=== PATIENT | female | born 2000 | race Caucasian/White ===

== ENCOUNTER 2025-08-13 23:43 | Observation (INO) ==
--- NOTE | 2025-08-14 00:01 | Emergency Department Note ---
History of Present Illness General Chief complaint: Illness Stated complaint: gallbladder pain History of Present Illness Maximum Pain Intensity: 8 This 24-year-old with no prior abdominal surgeries presents ER complaining of epigastric pain since yesterday. Patient went to [place] ER as she was visiting family in that region and had a CAT scan and labs. They did not have ultrasound there. CT was negative per patient. She does not have the results with her. Pain persisted so the patient came here. Patient denies chest pain, dyspnea, fever, chills, flulike illness. She has felt nauseous. Home Medications Medication Instructions Recorded Confirmed Type ibuprofen 200 mg tablet 400 mg PO Q6H PRN Pain 06/22/23 06/12/25 History albuterol sulfate 90 mcg/actuation 2 puff inhalation Q4 PRN Shortness 11/08/23 06/12/25 Rx aerosol inhaler (Ventolin HFA) Of Breath Or Wheezing #6.7 grams cholecalciferol (vitamin D3) 50 50 mcg PO DAILY 12/23/23 06/12/25 History mcg (2,000 unit) capsule ferrous gluconate 225 mg (27 mg 225 mg PO DAILY 09/13/24 06/12/25 History iron) tablet levothyroxine 50 mcg tablet 50 mcg PO DAILY #90 tabs 09/13/24 06/12/25 Rx buspirone 7.5 mg tablet 7.5 mg PO TID #90 tabs 09/28/24 06/12/25 Rx spironolactone 50 mg tablet 100 mg (2 x 50 mg) PO DAILY #180 11/26/24 06/12/25 Rx tabs clindamycin phosphate 1 % topical 1 applic topical BID #60 mL 03/27/25 06/12/25 Rx solution propranolol 10 mg tablet 10 mg PO DIRECTED PRN Anxiety 06/12/25 06/12/25 Rx #90 tabs metformin 500 mg tablet,extended 1,500 mg (3 x 500 mg) PO DAILY 07/10/25 Rx release 24 hr #270 tabs Allergies Allergy/AdvReac Type Severity Reaction Status Date / Time nickel Allergy Rash Verified 06/12/25 16:09 Past Med/Surg History Problem List (Updated 08/14/25 @ 02:57 by Nova Stone PA-C) Nausea & vomiting (Acute) Abdominal pain, acute (Acute) Cholelithiasis (Acute) Subclinical hypothyroidism Impaired fasting glucose Iron deficiency Vitamin B12 deficiency Hirsutism Morbid obesity Vitamin D deficiency PCOS (polycystic ovarian syndrome) Anxiety Exercise-induced asthma Palpitations Heavy menstrual bleeding Surgical History H/O oral surgery History of tonsillectomy and adenoidectomy Family History Father Hypertension Mother H/O Sunitha thyroiditis Denies family history of Ovarian cancer Prostate cancer Myocardial infarction Breast cancer Colorectal cancer Social History Smoking Status: Never smoker Second Hand Exposure: No; Hx Alcohol Use: Yes Hx Substance Use: No Preferred Language: Vietnamese Visual Impairment: No Limitations Hearing Ability: Normal marital status: Single Current Living Situation: Alone current occupational status: employed Feels Safe at Home: Yes Childhood Exposure to Second-Hand Smoke: No Dental Care, Regularly: Yes Physical Activity Frequency: Daily Seatbelt Use: always Sunscreen Use: Yes Review of Systems A total of 10 systems reviewed and were otherwise negative Physical Exam Vital Signs Vital Signs - 24 hr 08/13/25 23:48 08/13/25 23:56 08/14/25 00:00 Temperature 36.5 C Temperature Source Temporal Artery Scan Pulse Rate 109 H 99 H 104 H Pulse Rate [Apical] Pulse Rate from SpO2 Sensor Pulse Rhythm Regular Regular Pulse Strength Normal Respiratory Rate 18 16 16 Respiratory Effort / Characteristics Non-Labored Spontaneous Respiratory Depth Normal Respiratory Pattern Regular Blood Pressure 146/79 H Blood Pressure [Right Arm] Blood Pressure Mean 101 Blood Pressure Mean [Right Arm] Blood Pressure Position Sitting Pulse Oximetry 99 100 100 Oxygen Delivery Method Room Air Room Air Room Air Sepsis Recent Fever Within 48 Hours No Sepsis New/Unexplained Change in Mental Status N/A Sepsis Action Taken by Nursing No Action Required 08/14/25 00:12 08/14/25 00:24 08/14/25 00:30 Temperature Temperature Source Pulse Rate 99 H 96 H Pulse Rate [Apical] 99 H Pulse Rate from SpO2 Sensor 98 H 97 H Pulse Rhythm Pulse Strength Respiratory Rate 14 16 17 Respiratory Effort / Characteristics Non-Labored Spontaneous Respiratory Depth Normal Respiratory Pattern Regular Blood Pressure 138/94 141/99 H Blood Pressure [Right Arm] 138/94 Blood Pressure Mean 108 113 Blood Pressure Mean [Right Arm] 108 Blood Pressure Position Pulse Oximetry 99 100 100 Oxygen Delivery Method Room Air Room Air Room Air Sepsis Recent Fever Within 48 Hours Sepsis New/Unexplained Change in Mental Status Sepsis Action Taken by Nursing 08/14/25 00:42 08/14/25 01:18 08/14/25 01:30 Temperature Temperature Source Pulse Rate 96 H 97 H 80 Pulse Rate [Apical] Pulse Rate from SpO2 Sensor 97 H 98 H 90 Pulse Rhythm Pulse Strength Respiratory Rate 20 20 20 Respiratory Effort / Characteristics Respiratory Depth Respiratory Pattern Blood Pressure 140/100 142/98 H 160/97 H Blood Pressure [Right Arm] Blood Pressure Mean 113 112 118 Blood Pressure Mean [Right Arm] Blood Pressure Position Pulse Oximetry 99 99 96 Oxygen Delivery Method Room Air Room Air Room Air Sepsis Recent Fever Within 48 Hours Sepsis New/Unexplained Change in Mental Status Sepsis Action Taken by Nursing 08/14/25 02:00 Temperature Temperature Source Pulse Rate Pulse Rate [Apical] Pulse Rate from SpO2 Sensor 88 Pulse Rhythm Pulse Strength Respiratory Rate Respiratory Effort / Characteristics Respiratory Depth Respiratory Pattern Blood Pressure 142/104 H Blood Pressure [Right Arm] Blood Pressure Mean 116 Blood Pressure Mean [Right Arm] Blood Pressure Position Pulse Oximetry 99 Oxygen Delivery Method Room Air Sepsis Recent Fever Within 48 Hours Sepsis New/Unexplained Change in Mental Status Sepsis Action Taken by Nursing VITALS: Vitals are noted on the nurse's note and reviewed by myself. Vital signs stable. GENERAL: Pleasant patient, in no acute distress, nondiaphoretic, well-developed well-nourished. SKIN: Capillary reflex less than 2 seconds. HEENT: Normocephalic. PERRLA. EOMI. Nares patent. Mucous membranes moist. Neck is supple without nuchal rigidity. HEART: Regular rate and rhythm LUNGS: Clear to auscultation bilaterally without wheezes, rales or rhonchi. No retractions or accessory muscle use. ABDOMEN: Positive bowel sounds x 4. Normal tympanic percussion. Soft, tender epigastric region, without masses or organomegaly No guarding or rebound tenderness. no CVA tenderness MUSCULOSKELETAL: No gross musculoskeletal defects. NEURO: Patient was alert and oriented to person place and time. No focal neurological deficits. Course Administered Medications Sodium Chloride (Nss) 1,000 mls @ 125 mls/hr IV .Q8H DEMETRI Stop: 08/17/25 02:29 Last Admin: 08/14/25 02:46 Dose: 125 mls/hr Documented By: SHEY Discontinued Medications Pantoprazole Sodium (Protonix) 40 mg in 10 mls @ 5 mls/min IV NOW ONE Stop: 08/13/25 23:57 Last Admin: 08/14/25 00:26 Dose: 5 mls/min Documented By: SHEY Sodium Chloride (Nss) 1,000 mls @ 999 mls/hr IV .Q1H1M ONE Stop: 08/14/25 00:56 Last Infusion: 08/14/25 01:30 Dose: Infused Documented By: Admin: 08/14/25 00:10 Dose: 999 mls/hr Documented By: SHEY Morphine Sulfate (Morphine Sulfate 4 Mg/Ml 1 Ml Carp\Vial) 4 mg IV NOW STA Stop: 08/14/25 00:34 Last Admin: 08/14/25 00:36 Dose: 4 mg Documented By: SHEY Morphine Sulfate (Morphine Sulfate 4 Mg/Ml 1 Ml Carp\Vial) 4 mg IV NOW STA Stop: 08/14/25 02:19 Last Admin: 08/14/25 02:41 Dose: 4 mg Documented By: SHEY Ondansetron HCl (Ondansetron Inj 2 Mg/Ml 2 Ml Vial) 4 mg IV NOW STA Stop: 08/13/25 23:57 Last Admin: 08/14/25 00:26 Dose: 4 mg Documented By: SHEY Medical Decision Making Medical Records Attestation: I reviewed the patient's medical records. Home Medications Current Medication List: was personally reviewed by me Laboratory Data Attestation: I reviewed the patient's lab results. 08/13/25 00:14 08/13/25 00:14 Lab Results 08/13/25 08/14/25 Range/Units 00:14 00:10 WBC 11.46 H (4.8-10.8) K/ul RBC 5.13 (4.20-5.40) M/uL Hgb 15.3 (12.0-16.0) g/dL Hct 43.4 (37.0-47.0) % MCV 84.6 (80.0-100.0) fL MCH 29.8 (25.0-34.0) pg MCHC 35.3 (32.0-36.0) g/dL RDW Std Deviation 35.8 L (36.4-46.3) fL RDW Coeff of [place] 11.7 (11.5-14.5) % Plt Count 236 (130-400) K/uL MPV 9.8 (9.4-12.4) fL Immature Gran % (Auto) 0.3 % Neut % (Auto) 75.1 % Lymph % (Auto) 17.9 % [place] % (Auto) 4.8 % Eos % (Auto) 1.7 % Baso % (Auto) 0.2 % Neut # (Auto) 8.62 H (1.40-6.50) K/uL Lymph # (Auto) 2.05 (1.20-3.40) K/uL [place] # (Auto) 0.55 (0.11-0.59) K/uL Eos # (Auto) 0.19 (0.00-0.50) K/uL Baso # (Auto) 0.02 (0.00-0.20) K/uL Immature Gran # (Auto) 0.03 (0.01-0.20) K/uL Sodium 141 (136-145) mmol/L Potassium 3.7 (3.5-5.1) mmol/L Chloride 103 (98-107) mmol/L Carbon Dioxide 26 (21-32) mmol/L Anion Gap 12 H (3-11) BUN 12 (6-23) mg/dl Creatinine 0.62 (0.6-1.2) mg/dl Est Cr Clr Drug Dosing 193.5 ml/min eGFR 127.45 BUN/Creatinine Ratio 19.4 (10-20) Glucose 114 H (70-99(Fasting)) mg/dl Calcium 9.7 (8.6-10.3) mg/dl Total Bilirubin 0.5 (0.2-1.0) mg/dl AST 21 (13-39) U/L ALT 30 (7-52) U/L Alkaline Phosphatase 62 (34-104) U/L Total Protein 7.5 (6.0-8.3) gm/dl Albumin 4.5 (3.4-5.0) gm/dl Globulin 3.0 (2.5-4.0) gm/dl Albumin/Globulin Ratio 1.5 (0.9-2) Lipase 44 (11-82) U/L HCG, Qual Negative (Negative) Urine Color Dark Yellow Urine Appearance Clear (Clear) Urine pH 7.0 (4.5-7.5) Ur Specific [place] 1.026 (1.000-1.030) Urine Protein Trace H (Negative) Urine Glucose (UA) Negative (Negative) Urine Ketones Trace H (Negative) Urine Blood Negative (Negative) Urine Nitrite Negative (Negative) Urine Bilirubin Negative (Negative) Urine Urobilinogen Negative (Negative) Ur Leukocyte Esterase Negative (Negative) Urine WBC (Auto) 0-5 (0-5) /hpf Urine RBC (Auto) 6-10 H (0-2) /hpf U Hyaline Cast (Auto) 0-2 (0-2) /lpf U Epithel Cells (Auto) 3-5 H (0-2) /hpf Urine Bacteria (Auto) 2+ H (None Seen) Urine Comment Imaging Data Attestation: I personally reviewed and interpreted this imaging study as follows: Radiologist's Impression: Gallbladder Ultrasound 08/13/25 23:56 EXAM: US gallbladder CLINICAL HISTORY: epigastric pain,RUQ pain, vomiting. TECHNIQUE: Ultrasound examination of the RUQ was performed using a high-frequency transducer. Scanning was performed with the patient in supine position. The following structures were specifically evaluated: COMPARISON: None available. FINDINGS: Liver: Liver size: Mild enlarged and echogenic fatty echogenicity, aroldo up to 18.5 cm. No evidence of focal lesions, cysts, or masses. Hepatic vasculature appears normal. mean portal vein patent. Gallbladder: The gallbladder is distended with bile. Multiple mobile gallstones seen at its neck, average wall thickness 2.5 mm noted. Unable to assess Peraza's sign due to medication. Biliary Tree: Common bile duct diameter: 4 mm. Common bile duct is prominent. No evidence of choledocholithiasis or biliary obstruction. Pancreas; obscured by overlying bowel Right Kidney: Right kidney size: 11.5 x 4.5 x 4.6 cm. The right kidney appears normal in size with preserved corticomedullary differentiation. No evidence of hydronephrosis, renal cysts, or masses. IMPRESSION: 1. Multiple Gallbladder stones at the neck; wall thickness measures approximately 2.5mm (within normal range). No definite sonographic evidence of acute cholecystitis. Recommend clinical correlation (Peraza's sign). 2. Mild hepatomegaly with fatty changes. 3. Common bile duct measures 4mm; no evidence of obstruction or choledocholithiasis. RECOMMENDATIONS: Clinical correlation with symptoms and further evaluation as indicated. Electronically signed by Dilip Knott 08-14-2025 02:10 AM [facility] Narrative Prior records/ancillary studies reviewed. Triage Nursing notes reviewed. Additional history obtained from nursing. The patient's history was concerning for abdominal pain. Differential diagnosis: Etiologies such as appendicitis, diverticulitis, PUD, biliary pathology, UTI, pancreatitis, obstruction, mesenteric ischemia, aortic pathology, infections, inflammatory bowel disease, renal colic, as well as others were entertained. Physical examination findings: As above. ER treatment provided: An order was placed for continuous cardiac monitoring. The monitor shows a rate of 60-100 with a sinus rhythm per my Independent interpretation. IV fluids, Zofran and Protonix were ordered I requested the records from [place] and they finally arrived and did review them. On reassessment the patient felt better. Diagnostics interpreted by me: The labs Independently Interpreted by myself revealed mild leukocytosis, negative hCG. Negative urine. Mild hyperglycemia that DKA. Normal LFTs Imaging studies: Imaging was reviewed and read by radiology Consultation: A consultation was placed with the surgical team. The case was discussed and diagnostics were reviewed. The patient was evaluated in the ER for further treatment. Exam and history seem consistent with cholelithiasis with concerns for developing acute cholecystitis. Patient did require a few rounds of pain meds. Surgery was consulted case discussed. Patient was admitted to the surgical service. Patient is agreeable. Patient was afebrile and nontoxic. Normal LFTs. I did review the records from [place]. Patient was admitted in stable condition. By the evaluation outlined above emergent etiologies such as appendicitis, diverticulitis, PUD, UTI, pancreatitis, obstruction, mesenteric ischemia, aortic pathology, inflammatory bowel disease, renal colic, as well as others were deemed relatively unlikely. The pt informed about the findings as listed above. All questions were answered and pleased with the treatment. The chart was completed utilizing [employer] voice recognition software. Grammatical errors, random word insertions, pronoun errors, and incomplete sentences are an occassional consequence of this system due to software limitations, ambient noise, and hardware issues. Any formal questions or concerns about the content, text, or information contained within the body of this dictation should be directly addressed to the physician events assistant for clarification. Impression & Plan Abdominal pain, acute, Cholelithiasis, Nausea & vomiting Discharge Plan Visit Data Chief Complaint: Illness Stated Complaint: gallbladder pain ED Provider: Юлия Cain ED Midlevel Provider: Nova Stone Discharge Problem: Abdominal pain, acute, Cholelithiasis, Nausea & vomiting Patient Disposition: Being Evaluated by Surgeon Condition: Good Forms Stand Alone Forms: My [facility] [employer] Prescriptions Prescriptions: No Action albuterol sulfate [Ventolin HFA] 90 mcg/actuation HFA aerosol inhaler 2 puff INHALATION Q4 PRN (Reason: Shortness Of Breath Or Wheezing) Qty: 6.7 1RF spironolactone 50 mg tablet 100 mg PO DAILY Qty: 180 2RF metformin 500 mg tablet extended release 24 hr 1,500 mg PO DAILY Qty: 270 2RF propranolol 10 mg tablet 10 mg PO DIRECTED PRN (Reason: Anxiety) Qty: 90 0RF cholecalciferol (vitamin D3) 50 mcg (2,000 unit) capsule 50 mcg PO DAILY Hold Instructions: high dose buspirone 7.5 mg tablet 7.5 mg PO TID Qty: 90 2RF clindamycin phosphate 1 % solution 1 applic topical BID Qty: 60 1RF ferrous gluconate 225 mg (27 mg iron) tablet 225 mg PO DAILY levothyroxine 50 mcg tablet 50 mcg PO DAILY Qty: 90 3RF ibuprofen 200 mg Tablet 400 mg PO Q6H PRN (Reason: Pain) Referrals Referrals: Ericka Busch CRNP [Primary Care Provider] - Discharge Problem: Cholelithiasis Qualifiers: Cholelithiasis location: gallbladder Cholecystitis acuity: unspecified acuity
[2025-08-14] MEDS: SODIUM CHLORIDE 0.9% 1,000 ML IV ONE (00:10)
[2025-08-14] MEDS: ONDANSETRON INJ 2 MG/ML 2 ML VIAL IV STA (00:26)
[2025-08-14] MEDS: PANTOprazole 40 MG/10 ML SYR IV ONE (00:26)
[2025-08-14 00:29] LABS: Hematocrit (blood only) 43.4 % (37.0-47.0); Hemoglobin 15.3 g/dL (12.0-16.0); Immature Granulocytes # (auto) 0.03 K/uL (0.01-0.20); Immature Granulocytes % (auto) 0.3 %; Mean Corpuscular Hemoglobin 29.8 pg (25.0-34.0); Mean Corpuscular Volume 84.6 fL (80.0-100.0); Platelet Count 236 K/uL (130-400); RDW Standard Deviation 35.8 fL (36.4-46.3); Red Blood Count 5.13 M/uL (4.20-5.40); White Blood Count 11.46 K/ul (4.8-10.8)
[2025-08-14] MEDS: MoRPHine SULFATE 4 MG/ML 1 ML CARP\\VIAL IV STA ×2 (00:36→02:41)
[2025-08-14 00:45] LABS: Pregnancy Test, Serum Negative (Negative)
[2025-08-14 00:46] LABS: Alanine Aminotransferase 30.0 U/L (7-52); Albumin Globulin Ratio 1.5 (0.9-2); Albumin Level 4.5 gm/dl (3.4-5.0); Alkaline Phosphatase 62.0 U/L (34-104); Anion Gap 12.0 (3-11); Bilirubin,Total 0.5 mg/dl (0.2-1.0); Blood Urea Nitrogen 12.0 mg/dl (6-23); Calcium 9.7 mg/dl (8.6-10.3); Carbon Dioxide 26.0 mmol/L (21-32); Chloride 103.0 mmol/L (98-107); Creatinine Clr Calc Pharmacy 193.5 ml/min; Globulin 3.0 gm/dl (2.5-4.0); Glucose 114.0 mg/dl (70-99(Fasting)); Lipase 44.0 U/L (11-82); Potassium 3.7 mmol/L (3.5-5.1); Sodium 141.0 mmol/L (136-145); Total Protein 7.5 gm/dl (6.0-8.3)
[2025-08-14 00:47] LABS: Appearance Urine Clear (Clear); Bacteria Urine Automated 2+ (None Seen); Cast Urine Automated 0-2 /lpf (0-2); Glucose Urine UA Negative (Negative); WBC Urine Automated 0-5 /hpf (0-5)
--- NOTE | 2025-08-14 02:11 | Ultrasound Report ---
EXAM: US gallbladder CLINICAL HISTORY: epigastric pain,RUQ pain, vomiting. TECHNIQUE: Ultrasound examination of the RUQ was performed using a high-frequency transducer. Scanning was performed with the patient in supine position. The following structures were specifically evaluated: COMPARISON: None available. FINDINGS: Liver: Liver size: Mild enlarged and echogenic fatty echogenicity, aroldo up to 18.5 cm. No evidence of focal lesions, cysts, or masses. Hepatic vasculature appears normal. mean portal vein patent. Gallbladder: The gallbladder is distended with bile. Multiple mobile gallstones seen at its neck, average wall thickness 2.5 mm noted. Unable to assess Peraza's sign due to medication. Biliary Tree: Common bile duct diameter: 4 mm. Common bile duct is prominent. No evidence of choledocholithiasis or biliary obstruction. Pancreas; obscured by overlying bowel Right Kidney: Right kidney size: 11.5 x 4.5 x 4.6 cm. The right kidney appears normal in size with preserved corticomedullary differentiation. No evidence of hydronephrosis, renal cysts, or masses. IMPRESSION: 1. Multiple Gallbladder stones at the neck; wall thickness measures approximately 2.5mm (within normal range). No definite sonographic evidence of acute cholecystitis. Recommend clinical correlation (Peraza's sign). 2. Mild hepatomegaly with fatty changes. 3. Common bile duct measures 4mm; no evidence of obstruction or choledocholithiasis. RECOMMENDATIONS: Clinical correlation with symptoms and further evaluation as indicated. Electronically signed by Dilip Knott 08-14-2025 02:10 AM
[2025-08-14] MEDS ORDERED: ONDANSETRON INJ 2 MG/ML 2 ML VIAL IV PRN ×2 (02:28→06:57)
--- NOTE | 2025-08-14 02:39 | History & Physical Report ---
Date of Service August 14, 2025 Assessment & Plan (1) Cholelithiasis: Plan: symptoms c/w cholelithiasis. discussed risks ( bleeding/infection/injury to a bile duct or other organ/dvt/pe/mi/cva etc...) questions answered. pt agreeable. will proceed today with lap martha (2) Nausea & vomiting: (3) Abdominal pain, acute: History of Present Illness Chief Complaint: Cholelithiasis Primary Care Provider: PEDRITO Douglass This is a 24-year-old female who presented to the emergency department secondary to abdominal pain. The patient says that the abdominal pain began yesterday and is located across her entire upper abdomen. She notes that the pain does not radiate and does not have any modifying factors. Patient says that over the past several weeks to months she has not noted any postprandial abdominal pain and has noted the pain began yesterday. She denies any fevers, shakes, or chills. She has had associated nausea and vomiting with her most recent episode of emesis only a few minutes ago. She has never had prior abdominal surgeries. Patient does note that she went to an emergency department in [place] yesterday and had a CT scan that she said did not reveal any cause to her abdominal pain so she presented to the emergency department at [facility]. Since arrival to the hospital today she has had additional imaging and labs which I independently reviewed. She did have a gallbladder ultrasound that showed there are multiple multiple gallstones seen in the gallbladder neck. There is no evidence of choledocholithiasis or biliary obstruction on this study. The gallbladder was noted to have normal range of thickness without definite evidence of cholecystitis. A CBC revealed white blood cell count was 11.4. Her hemoglobin and hematocrit as well as the platelet count were normal. Chemistry profile showed sodium and potassium as well as the BUN and creatinine were normal. The patient's total bilirubin, transaminases, alkaline phosphatase, and lipase were all normal. The patient did have a test that was negative. Urinalysis had 2+ bacteria but was otherwise not indicative of infection. At the time of my interview she was resting comfortably in bed and she was in no distress Allergies Allergy/AdvReac Type Severity Reaction Status Date / Time nickel Allergy Rash Verified 06/12/25 16:09 Home Medications Medication Instructions Recorded Confirmed Type ibuprofen 200 mg tablet 400 mg PO Q6H PRN Pain 06/22/23 06/12/25 History albuterol sulfate 90 mcg/actuation 2 puff inhalation Q4 PRN Shortness 11/08/23 06/12/25 Rx aerosol inhaler (Ventolin HFA) Of Breath Or Wheezing #6.7 grams cholecalciferol (vitamin D3) 50 50 mcg PO DAILY 12/23/23 06/12/25 History mcg (2,000 unit) capsule ferrous gluconate 225 mg (27 mg 225 mg PO DAILY 09/13/24 06/12/25 History iron) tablet levothyroxine 50 mcg tablet 50 mcg PO DAILY #90 tabs 09/13/24 06/12/25 Rx buspirone 7.5 mg tablet 7.5 mg PO TID #90 tabs 09/28/24 06/12/25 Rx spironolactone 50 mg tablet 100 mg (2 x 50 mg) PO DAILY #180 11/26/24 06/12/25 Rx tabs clindamycin phosphate 1 % topical 1 applic topical BID #60 mL 03/27/25 06/12/25 Rx solution propranolol 10 mg tablet 10 mg PO DIRECTED PRN Anxiety 06/12/25 06/12/25 Rx #90 tabs metformin 500 mg tablet,extended 1,500 mg (3 x 500 mg) PO DAILY 07/10/25 Rx release 24 hr #270 tabs Past Med/Surg History Problem List (Updated 08/14/25 @ 07:46 by Rip Oreilly DO) Cholelithiasis Nausea & vomiting (Acute) Abdominal pain, acute (Acute) Impaired fasting glucose Iron deficiency Vitamin B12 deficiency Hirsutism Vitamin D deficiency Exercise-induced asthma Heavy menstrual bleeding Medical History (Updated 08/14/25 @ 07:46 by Rip Oreilly DO) Encounter for pre-operative examination Anxiety Palpitations PCOS (polycystic ovarian syndrome) Morbid obesity Subclinical hypothyroidism Surgical History H/O oral surgery History of tonsillectomy and adenoidectomy Family History Father Hypertension Mother H/O Sunitha thyroiditis Denies family history of Ovarian cancer Prostate cancer Myocardial infarction Breast cancer Colorectal cancer Social History Smoking Status: Never smoker Second Hand Exposure: No; Hx Alcohol Use: No Hx Substance Use: No Preferred Language: Frisian Communication Ability: Effective Visual Impairment: No Limitations Hearing Ability: Normal Housing Project Manager Required: No Beliefs That Will Affect Care: None marital status: Single Current Living Situation: Alone current occupational status: employed Other Information That Helps Us Care for You: No Feels Safe at Home: Yes Safety Concerns: Feels Safe At This Time Childhood Exposure to Second-Hand Smoke: No Dental Care, Regularly: Yes Physical Activity Frequency: Daily Seatbelt Use: always Sunscreen Use: Yes Assistive Devices: Glasses Review of Systems Review of Systems: All systems reviewed & are unremarkable except as noted in HPI & below Physical Exam Constitutional: WD/WN, vitals as above Eyes: No scleral jaundice ENMT: Ears: no hearing impairment and no external ear abnormality Mouth: no oropharynx abnormality Neck: trachea midline Respiratory: normal respiratory effort; no respiratory distress and no labored breathing Cardiovascular: Rate/Rhythm: regular rate and regular rhythm Gastrointestinal (Abdomen): Abdomen is soft distention. There is no rebound tenderness, guarding, or signs of peritonitis. Patient did have pain with palpation in her upper abdomen but this appear to be greatest in the right upper quadrant Musculoskeletal: No calf tenderness Skin: no jaundice Neurologic: moves all extremities Psychiatric: A+Ox3, euthymic affect Results & Data Results & Data Vital Signs (Past 12 Hours) Vital Signs Temp Pulse Pulse Resp BP BP Pulse Ox 08/14/25 02:00 142/104 H 99 08/14/25 01:30 80 20 160/97 H 96 08/14/25 01:18 97 H 20 142/98 H 99 08/14/25 00:42 96 H 20 140/100 99 08/14/25 00:30 96 H 17 141/99 H 100 08/14/25 00:24 99 H 16 138/94 100 08/14/25 00:12 99 H 14 138/94 99 08/14/25 00:00 104 H 16 100 08/13/25 23:56 99 H 16 100 08/13/25 23:48 36.5 C 109 H 18 146/79 H 99 O2 Del Method 08/14/25 02:00 Room Air 08/14/25 01:30 Room Air 08/14/25 01:18 Room Air 08/14/25 00:42 Room Air 08/14/25 00:30 Room Air 08/14/25 00:24 Room Air 08/14/25 00:12 Room Air 08/14/25 00:00 Room Air 08/13/25 23:56 Room Air 08/13/25 23:48 Room Air PG Care Time/CCT Total # of Minutes Spent Total Time Spent with Patient: Total time spent is greater than 50% in coordination of care (as documented) at patient's floor/unit and/or counseling patient: Coding Level of Care Code 34795 INT INP/OBS CARE 375MIN Diagnoses Cholelithiasis K80.20 Cholecystitis acuity: unspecified acuity Cholelithiasis location: gallbladder Nausea & vomiting R11.2 Abdominal pain, acute R10.9 (1) Cholelithiasis Cholecystitis acuity: unspecified acuity Cholelithiasis location: gallbladder
[2025-08-14] MEDS: SODIUM CHLORIDE 0.9% 1,000 ML IV SCH (02:46)
[2025-08-14] MEDS: cefOXitin 2,000 MG/60 ML BAG IV STA (02:57)
[2025-08-14 03:09] LABS: INR 1.0 (0.9-1.1); Partial Thromboplastin Time 26 Seconds (21-31); Prothrombin Time 10.3 Seconds (9.0-12.0)
[2025-08-14] MEDS: MoRPHine SULFATE 4 MG/ML 1 ML CARP\\VIAL IV PRN ×2 (04:56→10:36)
[2025-08-14] MEDS ORDERED: HYDROmorphone INJ 1 MG/ML SYRINGE IV PRN (06:57)
[2025-08-14] MEDS ORDERED: ATROPINE SULFATE 0.1 MG/ML 10ML SYR IV PRN (06:57)
[2025-08-14] MEDS ORDERED: PROMETHAZINE HCL 6.25 MG in SODIUM CHLORIDE 0.9% 50 ML IV PRN (06:57)
--- NOTE | 2025-08-14 07:00 | Anesthesiology Consultation ---
Date of Service August 14, 2025 Assessment & Plan (1) Encounter for pre-operative examination: Chart Review Chart Review: Acceptable Risk for Surgery and Patient NOT seen in Pre Admission Testing Consults Requested none History Surgery Operation Date: 08/14/25 07:00 Proposed Procedures p Laparoscopic Cholecystectomy - Rip Oreilly, Height/Weight Height: 5 ft 7 in Weight: 126.4 kg Allergies Allergy/AdvReac Type Severity Reaction Status Date / Time nickel Allergy Rash Verified 06/12/25 16:09 Medications Home Medications Medication Instructions Recorded Confirmed Last Taken ibuprofen 200 mg tablet 400 mg PO Q6H PRN Pain 06/22/23 06/12/25 Unknown albuterol sulfate 90 mcg/actuation 2 puff inhalation Q4 PRN Shortness 11/08/23 06/12/25 Unknown aerosol inhaler (Ventolin HFA) Of Breath Or Wheezing #6.7 grams cholecalciferol (vitamin D3) 50 50 mcg PO DAILY 12/23/23 06/12/25 Unknown mcg (2,000 unit) capsule ferrous gluconate 225 mg (27 mg 225 mg PO DAILY 09/13/24 06/12/25 Unknown iron) tablet levothyroxine 50 mcg tablet 50 mcg PO DAILY #90 tabs 09/13/24 06/12/25 Unknown buspirone 7.5 mg tablet 7.5 mg PO TID #90 tabs 09/28/24 06/12/25 Unknown spironolactone 50 mg tablet 100 mg (2 x 50 mg) PO DAILY #180 11/26/24 06/12/25 Unknown tabs clindamycin phosphate 1 % topical 1 applic topical BID #60 mL 03/27/25 06/12/25 Unknown solution propranolol 10 mg tablet 10 mg PO DIRECTED PRN Anxiety 06/12/25 06/12/25 Unknown #90 tabs metformin 500 mg tablet,extended 1,500 mg (3 x 500 mg) PO DAILY 07/10/25 Unknown release 24 hr #270 tabs Active Medications Generic Name Dose Route Start Last Admin Trade Name Freq PRN Reason Stop Dose Admin Sodium Chloride 1,000 mls @ 125 mls/hr 08/14/25 02:30 08/14/25 02:46 Nss IV 08/17/25 02:29 125 mls/hr .Q8H DEMETRI Administration Morphine Sulfate 3 mg 08/14/25 02:28 08/14/25 04:56 Morphine Sulfate 4 Mg/Ml 1 Ml Carp\Vial IV 08/28/25 02:27 3 mg Q3H PRN Administration Severe Pain (Scale 7, 8, 9,10) Past Medical History Medical History (Updated 08/14/25 @ 07:01 by Andry Radford MD) Encounter for pre-operative examination Anxiety Palpitations PCOS (polycystic ovarian syndrome) Morbid obesity Subclinical hypothyroidism Cholelithiasis Past Family History Family History Father Hypertension Mother H/O Sunitha thyroiditis Denies family history of Ovarian cancer Prostate cancer Myocardial infarction Breast cancer Colorectal cancer Past Surgical History Surgical History H/O oral surgery History of tonsillectomy and adenoidectomy Social History Smoking Status: Never smoker Hx Alcohol Use: No Hx Substance Use: No Physical Exam Vital Signs Last Vital Signs Temp 37.1 C 08/14/25 07:25 Pulse 128 H 08/14/25 07:25 Resp 20 08/14/25 07:25 BP 150/88 H 08/14/25 07:25 Pulse Ox 99 08/14/25 07:25 O2 Del Method Room Air 08/14/25 07:25 Testing Laboratory Results 08/14/25 07:06 08/14/25 07:06 PT 10.3 Seconds (9.0-12.0) 08/14/25 00:14 INR 1.0 (0.9-1.1) 08/14/25 00:14 APTT 26 Seconds (21-31) 08/14/25 00:14 Urine Color Dark Yellow 08/14/25 00:10 Urine Appearance Clear (Clear) 08/14/25 00:10 Urine pH 7.0 (4.5-7.5) 08/14/25 00:10 Ur Specific [place] 1.026 (1.000-1.030) 08/14/25 00:10 Urine Protein Trace (Negative) H 08/14/25 00:10 Urine Glucose (UA) Negative (Negative) 08/14/25 00:10 Urine Ketones Trace (Negative) H 08/14/25 00:10 Urine Nitrite Negative (Negative) 08/14/25 00:10 Ur Leukocyte Esterase Negative (Negative) 08/14/25 00:10 Urine WBC (Auto) 0-5 /hpf (0-5) 08/14/25 00:10 Urine RBC (Auto) 6-10 /hpf (0-2) H 08/14/25 00:10 U Hyaline Cast (Auto) 0-2 /lpf (0-2) 08/14/25 00:10 U Epithel Cells (Auto) 3-5 /hpf (0-2) H 08/14/25 00:10 Urine Bacteria (Auto) 2+ (None Seen) H 08/14/25 00:10 Electrocardiogram Date: 06/22/23 DICTATED BY: Arnie Murrieta MD Test Reason : Blood Pressure : / mmHG Vent. Rate : 088 BPM Atrial Rate : 088 BPM P-R Int : 132 ms QRS Dur : 090 ms QT Int : 348 ms P-R-T Axes : 040 031 023 degrees QTc Int : 421 ms Normal sinus rhythm with sinus arrhythmia Normal ECG No previous ECGs available Confirmed by Arnie Murrieta ([id number]) on 06/23/2023 12:32:24 PM Chest X-Ray Date: 06/22/23 XR chest 1V not portable HISTORY: 22 years-old Female Chest pain, nonspecific COMPARISON: CTA chest of same day TECHNIQUE: AP view of the chest FINDINGS: Cardiomediastinal and hilar silhouettes are within normal limits. No pneumothorax, pleural effusion or airspace consolidation. The bones appear normal. IMPRESSION: Normal exam.
[2025-08-14 07:19] LABS: Hematocrit (blood only) 42.0 % (37.0-47.0); Hemoglobin 14.5 g/dL (12.0-16.0); Mean Corpuscular Hemoglobin 29.7 pg (25.0-34.0); Mean Corpuscular Volume 85.9 fL (80.0-100.0); Platelet Count 221 K/uL (130-400); RDW Standard Deviation 36.6 fL (36.4-46.3); Red Blood Count 4.89 M/uL (4.20-5.40); White Blood Count 14.86 K/ul (4.8-10.8)
[2025-08-14] MEDS ORDERED: GLYCOPYRROLATE 0.2 MG/ML VIAL ONE (07:20)
[2025-08-14] MEDS ORDERED: ROCURONIUM BROMIDE 10 MG/ML 5 ML VIAL IV ONE (07:20)
[2025-08-14] MEDS ORDERED: ONDANSETRON INJ 2 MG/ML 2 ML VIAL ONE (07:20)
[2025-08-14] MEDS ORDERED: PROPOFOL IV EMULSION 10 MG/ML 20 ML VIAL IV ONE (07:20)
[2025-08-14] MEDS ORDERED: DEXAMETHASONE SOD INJ 4 MG/ML VIAL ONE (07:20)
[2025-08-14] MEDS ORDERED: MIDAZOLAM HCL 1 MG/ML 2ML VIAL ONE (07:20)
[2025-08-14] MEDS ORDERED: LIDOCAINE 2% 2 ML VIAL/AMP(20MG/ML) INFIL ONE (07:20)
[2025-08-14] MEDS ORDERED: NEOSTIGMINE METHYLSULFATE 1 MG/ML 10ML VIAL ONE (07:20)
[2025-08-14 07:39] LABS: Alanine Aminotransferase 30.0 U/L (7-52); Albumin Globulin Ratio 1.6 (0.9-2); Albumin Level 4.4 gm/dl (3.4-5.0); Alkaline Phosphatase 62.0 U/L (34-104); Anion Gap 9.0 (3-11); Bilirubin,Total 0.6 mg/dl (0.2-1.0); Blood Urea Nitrogen 8.0 mg/dl (6-23); Calcium 9.2 mg/dl (8.6-10.3); Carbon Dioxide 24.0 mmol/L (21-32); Chloride 105.0 mmol/L (98-107); Creatinine Clr Calc Pharmacy 244.6 ml/min; Globulin 2.8 gm/dl (2.5-4.0); Glucose 119.0 mg/dl (70-99(Fasting)); Lipase 17.0 U/L (11-82); Potassium 4.3 mmol/L (3.5-5.1); Sodium 138.0 mmol/L (136-145); Total Protein 7.2 gm/dl (6.0-8.3)
[2025-08-14 07:44] LABS: Immature Granulocytes # (auto) 0.04 K/uL (0.01-0.20); Immature Granulocytes % (auto) 0.3 %; Polychromasia 1+
[2025-08-14] MEDS: cefOXitin 2,000 MG in DEXTROSE 5 % MINI-B 50 ML IV SCH (08:10)
[2025-08-14] MEDS: BUPIVACAINE 0.5 % 5 MG/1 ML MPF 30ML VIAL ONE (08:48)
[2025-08-14] MEDS ORDERED: SUGAMMADEX SODIUM 200 MG/2 ML VIAL IV ONE (09:03)
--- NOTE | 2025-08-14 09:16 | Operative Report ---
[facility] Post Operative Report Pre & Post Diagnosis Operation Date: 08/14/25 07:00 Pre-Op Diagnosis: (1) Cholelithiasis: (2) Nausea & vomiting: (3) Abdominal pain, acute: Post-Op Diagnosis: (1) Cholelithiasis: (2) Nausea & vomiting: (3) Abdominal pain, acute: I identified the patient and participated in the time-out.: Yes Procedure Operation Date: 08/14/25 07:00 Actual Procedures p Laparoscopic Cholecystectomy(Not Applicable) - Rip Oreilly DO Surgeon Rip Oreilly DO [employer] ashleigh [place] Estimated Blood Loss 10 Findings Consistent with Post-Op Diagnosis Specimens gallbladder Description of Procedure After informed consent was obtained the patient was taken to the operating room and placed in the supine position. After successful intubation the abdomen was sterilely prepped and draped in usual fashion. A periumbilical incision was made with an 11 blade scalpel and carried down through the soft tissue using electrocautery. The anterior rectus fascia was opened using electrocautery and 2 #0 Vicryl stay sutures were placed. The peritoneum was elevated with hemos tats and incised under direct vision using Metzenbaum scissors. A finger sweep was performed and a 12 mm Mai trocar was placed. The abdomen was insufflated to 18 mmHg. The laparoscope was inserted and the abdomen was examined in 360. The gallbladder was acutely inflammed, otherwise No gross abnormalities were identified. A subxiphoid 11 mm port and 2 right upper quadrant 5 mm ports were placed under direct vision. The patient was placed in a reverse Trendelenburg position and slightly airplaned to the left. The gallbladder was acutely inflamed. I therefore used a gallbladder needle to drain some dark bilious bile. Once we did this, the gallbladder was grasped and elevated superiorly and laterally. A [place] dissector was used to take down adhesions around the neck of the gallbladder. The cystic duct was identified and skeletonized. It was clipped twice proximally and once distally and transected using a laparoscopic scissor. After doing so I realized the cystic artery was also incorporated in the same clips. The gallbladder was removed from the gallbladder fossa with electrocautery. It was placed into an Endo Catch bag. Thorough irrigation was performed. At the end of the procedure there was adequate hemostasis and no evidence of any bile leaks. A final look around the abdomen showed no other abnormalities. The gallbladder and trochars were all removed and the abdomen was desufflated. The fascia of the camera port was closed using 0 Vicryl in a [id number] fashion. All the wounds were irrigated and closed using 4-0 Monocryl. Marcaine was injected around them for postoperative analgesia and skin glue used as a dressing. The patient was awakened, extubated and transferred to recovery in stable condition. My physician's drug safety assistant was present throughout the entire case... helped with prepping the patient. With exposure for trocar placement, as well as retracted the gallbladder throughout the case and also assisted with wound closure and dressing placement. I attest to the content of the Intraoperative Record and any orders documented therein. Any exceptions are noted below.
[2025-08-14] MEDS ORDERED: KETOROLAC 30 MG/ML VIAL ONE (09:19)
[2025-08-14] MEDS ORDERED: MoRPHine SULFATE 2 MG/ML CARP IV PRN (10:21)
[2025-08-14] MEDS: BUPIVACAINE/EPINEPHRINE 0.5% MPF 1:200,000 30 ML VIAL ONE (10:32)
[2025-08-14] MEDS: LACTATED RINGER'S 1,000 ML IV SCH (10:37)
[2025-08-14 10:51] VITALS: RESP 18
[2025-08-14] MEDS: ACETAMINOPHEN 1,000 MG/100 ML VIAL IV PRN (12:13)
[2025-08-14 12:15] VITALS: TEMP 98.2
[2025-08-14 13:27] VITALS: BP 114/77; PULSE 95; O2SAT 96
--- NOTE | 2025-08-14 13:33 | Anesthesiology Progress Note ---
Date of Service August 14, 2025 Anesthesia Post Procedure Vital Signs Vital Signs: Temp Pulse Pulse Pulse Resp BP BP 08/14/25 13:00 36.8 C 95 H 18 114/77 08/14/25 11:00 36.8 C 100 H 18 130/84 08/14/25 10:30 36.7 C 103 H 18 125/83 08/14/25 09:55 97 H 16 120/79 08/14/25 09:45 89 15 133/87 08/14/25 09:35 36.9 C 102 H 21 128/84 08/14/25 09:25 99 H 13 133/76 08/14/25 09:16 37.3 C 93 H 20 136/72 08/14/25 07:25 37.1 C 128 H 20 150/88 H 08/14/25 07:20 08/14/25 04:07 71 17 142/96 H 08/14/25 04:00 82 16 142/96 H 08/14/25 03:43 88 16 134/98 08/14/25 03:42 85 14 134/98 08/14/25 03:35 37.1 C 78 18 142/84 H 08/14/25 03:30 74 18 08/14/25 03:00 83 18 151/97 H 08/14/25 02:30 127/98 08/14/25 02:03 95 H 12 08/14/25 02:00 142/104 H 08/14/25 01:30 80 20 160/97 H 08/14/25 01:18 97 H 20 142/98 H 08/14/25 00:42 96 H 20 140/100 08/14/25 00:30 96 H 17 141/99 H 08/14/25 00:24 99 H 16 138/94 08/14/25 00:12 99 H 14 138/94 08/14/25 00:00 104 H 16 08/13/25 23:56 99 H 16 08/13/25 23:48 36.5 C 109 H 18 146/79 H Pulse Ox O2 Del Method O2 Flow Rate 08/14/25 13:00 96 Room Air 08/14/25 11:00 97 Room Air 08/14/25 10:30 97 Room Air 08/14/25 09:55 98 Room Air 08/14/25 09:45 98 Room Air 08/14/25 09:35 98 Room Air 08/14/25 09:25 96 Room Air 08/14/25 09:16 94 Oxymask 5 08/14/25 07:25 99 Room Air 08/14/25 07:20 Room Air 08/14/25 04:07 96 Room Air 08/14/25 04:00 97 Room Air 08/14/25 03:43 100 Room Air 08/14/25 03:42 99 Room Air 08/14/25 03:35 98 Room Air 08/14/25 03:30 96 Room Air 08/14/25 03:00 98 Room Air 08/14/25 02:30 100 Room Air 08/14/25 02:03 98 Room Air 08/14/25 02:00 99 Room Air 08/14/25 01:30 96 Room Air 08/14/25 01:18 99 Room Air 08/14/25 00:42 99 Room Air 08/14/25 00:30 100 Room Air 08/14/25 00:24 100 Room Air 08/14/25 00:12 99 Room Air 08/14/25 00:00 100 Room Air 08/13/25 23:56 100 Room Air 08/13/25 23:48 99 Room Air Pain Intensity Upper Abdomen: Pain Intensity: 6 Transfer of Care Handoff Completed per policy Notes Mental Status: alert / awake / arousable and participated in evaluation Patient Amnestic to Procedure: Yes Nausea / Vomiting: adequately controlled Pain: adequately controlled Airway Patency, RR, SpO2: stable & adequate BP & HR: stable & adequate Hydration State: stable & adequate Anesthetic Complications: no major complications apparent and Pt Satisfied with anesthetic care
== END 2025-08-14 16:15 | disposition home or self-care (01) ==
LOC: ED 23:43 → 3W 08-14 02:41 → INTOOBSV 08-14 02:41 → 3W 08-14 04:07